=== PATIENT | female | born 1995 | race Hispanic/Latino ===

== ENCOUNTER 2018-08-12 13:32 | Emergency (ER) | payer BC, OTHER ==
[2018-08-12 13:32] VITALS: BMI 42.3
[2018-08-12] MEDS ORDERED: Albuterol-Ipratrop 3 mg / 0.5 (3 ml) UD ONE (13:40)
[2018-08-12] MEDS ORDERED: Albuterol 0.083% Inhal Sol (2.5 mg/3 mL) UD INH STA (14:54)
[2018-08-12] MEDS ORDERED: Albuterol 0.083% Inhal Sol (2.5 mg/3 mL) UD ONE (15:21)
--- NOTE | 2018-08-12 16:08 | C.PDOC ---
History Of Present Illness 22 y/o female with history of Asthma presents to ED for medical evaulation of nausea and SOB since yesterday. She reports experiencing nausea, generalized abdominal pain, and dry cough yesterday. She thought that she was probably developing an URI but developed SOB today. She used albuterol inhaler today without much relief and came to the ED. She received duoneb during triage and reports some improvement but still c/o nausea and abdominal pain. She denies fever, chills, dizziness, chest pain, vomiting and diarrhea. LBM was 4 days ago. LMP: 08/06/2018. Time Seen by Provider: 08/12/18 14:30 Chief Complaint (Nursing): Shortness Of Breath History Per: Patient History/Exam Limitations: no limitations Onset/Duration Of Symptoms: Days (2) Current Symptoms Are (Timing): Still Present Associated Symptoms: denies: Fever, Chills, Sweating, Chest Pain, Bloody Cough, Productive Cough, Dizziness, Light-headedness, Anxiety Past Medical History Reviewed: Historical Data, Nursing Documentation, Vital Signs Vital Signs: Last Vital Signs Temp 97.3 F L 08/12/18 13:39 Pulse 125 H 08/12/18 13:39 Resp 19 08/12/18 15:15 BP 125/70 08/12/18 13:39 Pulse Ox 98 08/12/18 15:15 - Medical History PMH: Asthma, Migraine Surgical History: Appendectomy, Tonsillectomy - [facility] Procedures DELIVERY OF PRODUCTS OF CONCEPTION, EXTERNAL APPROACH (05/04/15) MONITORING NOS (01/16/15) REPAIR FEMALE PERINEUM, EXTERNAL APPROACH (05/04/15) VACUUM EXT DEL W EPISIOT (06/06/13) Family History: States: Unknown Family Hx - Social History Hx Tobacco Use: No Hx Alcohol Use: No Hx Substance Use: No Review Of Systems Constitutional: Negative for: Fever, Chills, Sweats, Weakness Cardiovascular: Negative for: Chest Pain Respiratory: Positive for: Cough, Shortness of Breath. Negative for: Sputum Gastrointestinal: Positive for: Nausea, Abdominal Pain, Constipation. Negative for: Vomiting, Diarrhea Genitourinary: Negative for: Dysuria, Frequency Musculoskeletal: Negative for: Neck Pain, Back Pain Skin: Negative for: Rash Neurological: Negative for: Weakness, Headache, Dizziness Physical Exam - Physical Exam Appears: Non-toxic, No Acute Distress Skin: Normal Color, Warm, Dry Head: Atraumatic, Normacephalic Eye(s): bilateral: Normal Inspection Nose: No Discharge Oral Mucosa: Moist Throat: No Erythema Neck: Normal ROM, Supple Chest: Symmetrical Cardiovascular: Rhythm Regular Respiratory: No Accessory Muscle Use, No Rhonchi, Wheezing Gastrointestinal/Abdominal: Soft, No Tenderness Extremity: Bilateral: Atraumatic, Normal Color And Temperature, Normal ROM Neurological/Psych: Oriented x3, Normal Speech, Normal Cognition, Normal Motor, Normal Sensation ED Course And Treatment - Laboratory Results Result Diagrams: 08/12/18 17:21 08/12/18 17:21 Urine POC: Negative O2 Sat by Pulse Oximetry: 98 - Other Rad obstructive series X-Ray: Viewed By Me, Read By Radiologist Interpretation: Accession No. : [id number]. Patient Name / ID : FATOUMATA LOZA / [id number]. Exam Date : 08/12/2018 18:04:51 ( Approved ). Study Comment : Sex / Age : F / 22Y. Creator : Susana Ramirez. Dictator : Zabrina Decker MD. Edi Programmer : Ski Production Supervisor : Zabrina Decker MD. Approver2 : Report Date : 08/12/2018 18:17:59. My Comment : . Date of service: 08/12/2018. PROCEDURE: Radiographs of the chest and abdomen (obstructive series). HISTORY: abdominal pain. COMPARISON: No prior. TECHNIQUE: AP radiograph of the chest, with upright and supine radiographs of the abdomen. FINDINGS: CHEST: Lungs: The lungs are well inflated and clear. Cardiovascular: Normal size heart. No pulmonary vascular congestion. No aortic atherosclerotic calcification present. Pleura: No pleural fluid. No pneumothorax. Other findings: None. ABDOMEN AND PELVIS: Bowel: There is moderate amount of stool in the ascending colon. No evidence of mechanical obstruction. Free air: None. Bones: Unremarkable. Other findings: An IUD overlies the pelvis. IMPRESSION: Moderate stool burden in the colon. Nonobstructive bowel-gas pattern. Clear lungs. Medical Decision Making Medical Decision Making: Plan: Duoneb given at triage Labs, Rapid Flu, UA, Obstructive series ordered Albuterol, Solu-Medrol and Zofran given Patient reassessed- no longer wheezing but still nauseous Pepcid and Diphehydramine given Flu-negative Reassessed and discussed results- Moderate stool burden in the colon. Nono bstructive bowel-gas pattern Encouraged change in diet- high fiber Discharged with Pred, Albuterol, Zofran, Pepcid, and Metamucil recommend follow up with PMD in 1-2 days Patient verbalized understanding and is in agreement with plan Disposition Counseled Patient/Family Regarding: Studies Performed, Diagnosis, Need For Followup, Rx Given - Disposition Referrals: Tony Munguia MD [Medical Doctor] - Disposition: HOME/ ROUTINE Disposition Time: 18:30 Condition: IMPROVED Additional Instructions: DAGO HAM, thank you for letting us take care of you today. Your provider was Doretha Miles MD and you were treated for SOB/ASTHMA/CHEST PAIN. The emergency medical care you received today was directed at your acute symptoms. If you were prescribed any medication, please fill it and take as directed. It may take several days for your symptoms to resolve. Return to the Emergency Department if your symptoms worsen, do not improve, or if you have any other problems. Please contact your doctor or call one of the physicians/clinics you have been referred to that are listed on the Patient Visit Information form that is included in your discharge packet. Bring any paperwork you were given at discharge with you along with any medications you are taking to your follow up visit. Our treatment cannot replace ongoing medical care by a primary care provider outside of the emergency department. Thank you for allowing the [facility] team to be part of your care today. Prescriptions: Albuterol HFA [Ventolin HFA 90 mcg/actuation (8 g)] 2 puff IH [id number] PRN #1 inh PRN Reason: Shortness Of Breath Famotidine 20 mg PO DAILY #10 tablet Ondansetron ODT [Zofran ODT] 4 mg PO TID PRN #30 odt PRN Reason: Nausea/Vomiting Polyethylene Glycol 3350 [Miralax] 17 gm PO DAILY #30 packet Prednisone [Deltasone] 20 mg PO TID #15 tablet Instructions: Constipation, Adult (DC), Shortness of Breath (Dyspnea) (DC), Nausea and Vomiting, Adult (DC), Avoiding Asthma Triggers Forms: [employer] ([place]) - Clinical Impression Clinical Impression: SOB (shortness of breath), Asthma exacerbation, Nausea, Constipation - PA / AFRICAN HISTORY PROFESSOR / Resident Statement MD/DO has reviewed & agrees with the documentation as recorded.
[2018-08-12] MEDS ORDERED: DiphenhydrAMINE 50 mg/ml Inj IVP STA (16:26)
[2018-08-12 16:33] LABS: SQUAMOUS EPITHIAL 16 /hpf (0-5); URINE BACTERIA OCC (<OCC); URINE BILIRUBIN NEGATIVE (NEGATIVE); URINE BLOOD 2+ (NEGATIVE); URINE CLARITY Hazy (Clear); URINE COLOR Amber (YELLOW); URINE GLUCOSE (UA) NORMAL (Normal); URINE LEUKOCYTE ESTERASE 2+ Leu/uL (Negative); URINE PROTEIN 2+ mg/dL (NEGATIVE)
[2018-08-12] MEDS ORDERED: DiphenhydrAMINE 50 mg/ml Inj ONE (17:09)
[2018-08-12 17:38] LABS: BASO % 0.3 % (0.0-2.0); EOS % 0.4 % (0.0-4.0); HEMOGLOBIN 13.3 g/dL (11.0-16.0); LYMPH % 13.6 % (20.0-40.0); MEAN CELL VOLUME 84.1 fL (81.0-99.0); MEAN CORPUSCULAR HEMOGLOBIN 27.5 pg (27.0-31.0); MEAN CORPUSCULAR HGB CONC 32.7 g/dL (33.0-37.0); MEAN PLATELET VOLUME 8.6 fL (7.2-11.7); MONO # 0.5 K/uL (0.0-0.8); MONO % 6.3 % (0.0-10.0); NEUT # 5.9 K/uL (1.8-7.0); NEUT % 79.4 % (50.0-75.0); RBC 4.83 Mil/uL (3.80-5.20); RED CELL DISTRIBUTION WIDTH 13.6 % (11.5-14.5); WHITE BLOOD COUNT 7.4 K/uL (4.8-10.8)
[2018-08-12 17:39] LABS: ALB/GLOB RATIO 1.4 (1.0-2.1); ALBUMIN 4.5 g/dL (3.5-5.0); ALT/SGPT 17 U/L (9-52); AST/SGOT 21 U/L (14-36); BLOOD UREA NITROGEN 8 mg/dL (7-17); GFR NON-AFRICAN AMERICAN > 60; LIPASE 27 U/L (23-300)
--- NOTE | 2018-08-12 18:40 | RAD ---
Date of service: 08/12/2018 PROCEDURE: Radiographs of the chest and abdomen (obstructive series) HISTORY: abdominal pain COMPARISON: No prior. TECHNIQUE: AP radiograph of the chest, with upright and supine radiographs of the abdomen. FINDINGS: CHEST: Lungs: The lungs are well inflated and clear. Cardiovascular: Normal size heart. No pulmonary vascular congestion. No aortic atherosclerotic calcification present Pleura: No pleural fluid. No pneumothorax. Other findings: None. ABDOMEN AND PELVIS: Bowel: There is moderate amount of stool in the ascending colon. No evidence of mechanical obstruction. Free air: None. Bones: Unremarkable. Other findings: An IUD overlies the pelvis. IMPRESSION: Moderate stool burden in the colon. Nonobstructive bowel-gas pattern. Clear lungs.
[2018-08-12 18:52] VITALS: BP 123/79; PULSE 84; RESP 18; TEMP 98.2
[2018-08-12 19:14] VITALS: O2SAT 98
== END 2018-08-12 19:11 | disposition home or self-care (01) ==
LOC: C.ER 13:32
DX: J45.901 Unspecified asthma with (acute) exacerbation (principal); R11.0 Nausea; K59.00 Constipation, unspecified; R06.02 Shortness of breath
CPT/HCPCS: 74022; 80053; 81001; 81025; 83690; 85025; 87804; 94640; 96374; 96375; 99285; J1200; J2930